=== PATIENT | female | born 1970 | race Caucasian/White ===

== ENCOUNTER 2017-08-27 10:04 | Outpatient (CLI) | payer OTHER | END 2017-08-27 10:07 | disposition home or self-care (01) | LOC: SONOGRAMA 10:04 | DX: N92.0 Excessive and frequent menstruation with regular cycle (principal); D25.0 Submucous leiomyoma of uterus; D25.1 Intramural leiomyoma of uterus ==

== ENCOUNTER 2017-10-20 08:30 | Inpatient (IN) | payer OTHER ==
[~2017-10-20] VITALS: Ht 152.4 cm; Wt 71.2 kg
[2017-11-06] MEDS ORDERED: SYNTHROID50 MCG PO (08:39)
== END 2017-11-15 12:11 | DRG 743 ==
LOC: SURH 08:30 → O/R 11-13 06:05 → SURH 11-13 07:00 → OB/GYN 11-13 10:56
PROVIDERS: Obstetrics & Gynecology
PROC: 0UT90ZZ Resection of Uterus, Open Approach (ICD-10-PCS; principal; 2017-11-13 07:00)
DX: D25.0 Submucous leiomyoma of uterus (principal); N72 Inflammatory disease of cervix uteri